=== PATIENT | male | born 1990 | race Caucasian/White ===

== ENCOUNTER 2016-12-30 20:27 | Emergency (ER) | payer OTHER ==
[~2016-12-30] VITALS: Ht 185.4 cm; Wt 102.0 kg
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
[2016-12-30] MEDS ORDERED: FLONASE 0.05% N16 G1 (20:43)
[2016-12-30] MEDS ORDERED: ALLEGRA (20:43)
== END 2016-12-30 23:20 | disposition home or self-care (01) ==
LOC: SED 20:27
DX: S16.1XXA Strain of muscle, fascia and tendon at neck level, initial encounter (principal); M54.9 Dorsalgia, unspecified; V43.52XA Car driver injured in collision with other type car in traffic accident, initial encounter
CPT/HCPCS: 72040; 99284